=== PATIENT | male | born 1960 | race Caucasian/White ===

== ENCOUNTER 2017-01-15 02:25 | Emergency (ER) | payer OTHER ==
[~2017-01-15] VITALS: Ht 182.9 cm; Wt 113.4 kg
[~2017-01-15 02:25] MED LIST: ALBUTEROL 3 ML3 ML INH; ASPIRIN CHILDRE81 MG PO; AUGMENTIN 875 M1 TAB PO; BENZONATATE200 M1 PO; CYCLOBENZAPRINE10 M1 PO; FLEXERIL10 MG PO; FLOVENT HF0.11 MG/Ac INH; IBUPROFEN600 M1 PO; IBUPROFEN800 M1 PO; IBUPROFEN800 MG PO; LIORESAL 10MG T10 MG PO; LISINOPRIL40 MG PO; MEDROL DOSEPAK1 PAC PO; MEDROL4 M1 PO; NO HOME PO; NORVASC 10MG10 MG PO; OXYCODONE HCL5 M1 PO; OXYCODONE5 M1 PO; OXYCODONE5 MG PO; PERCOCET 325 MG1 TA2 PO; PERCOCET 5-3251 EACH PO; SPIRIVA 18 MCG18 MCG INH; SPIRIVA1 PUF INH; TRANDATE-NORMO100 MG PO; ULTRAM(MONOGRAP50 MG PO; VENTOLIN HFA18 GM INH
[2017-01-15 03:05] VITALS: BP 155/91
[2017-01-15] MEDS ORDERED: PERCOCET 5-3251 EACH PO (03:09)
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
== END 2017-01-15 03:45 ==
LOC: ERH 02:25
DX: M54.5 Low back pain (principal)